=== PATIENT | female | born 1935 | race Caucasian/White ===

== ENCOUNTER → 2018-11-28 | Outpatient (CLI) | payer MEDICARE ==
[~2018-11-28] MED LIST: AMLODIPINE BESY10 MG PO; BENICAR20 MG PO; CARTIA XT120 MG PO; FOSAMAX70 MG PO; HYDROCHLOROTH12.5 MG PO; LEXAPRO20 MG PO; LOSARTAN POTAS100 MG PO; NEXIUM40 MG PO; NORCO 5-325 TA1 EACH PO; PRESERVISION T1 EACH PO; SIMVASTATIN40 MG PO; SOTALOL80 MG PO; SYNTHROID125 MCG PO; VITAMIN B12-FO1 EACH; VITAMIN C1000 MG PO; VITAMIN D1000 UNI1 PO; coQ 10; fish oil; vitamin b12 PO; vitamin e
[2018-11-28 11:12] LABS: BASOPHILS % 0.2 % (0.0-1.0); EOSINOPHILS # (AUTO) 0.1 (0.0-0.4); EOSINOPHILS % 1.6 % (0.0-6.0); HEMATOCRIT 39.5 % (34.2-44.1); HEMOGLOBIN 12.8 g/dL (12.0-16.0); LYMPHOCYTES # (AUTO) 1.3 (1.0-3.2); LYMPHOCYTES % 16.4 % (18.0-39.1); MEAN CORPUSCULAR HEMOGLOBIN 32.2 pg (28-32); MEAN CORPUSCULAR HGB CONC 32.4 g/dL (31-35); MEAN CORPUSCULAR VOLUME 99.2 fL (81-99); MONOCYTES # (AUTO) 0.6 (0.2-0.8); MONOCYTES % 7.6 % (4.4-11.3); NEUTROPHILS % 73.8 % (38.7-80.0); PLATELET COUNT 268 x10e3/uL (140-360); RED BLOOD COUNT 3.98 x10e6/uL (3.6-5.1); RED CELL DISTRIBUTION WIDTH 12.2 % (11.7-14.4)
[2018-11-28 11:14] LABS: BILIRUBIN,URINE NEGATIVE (NEGATIVE); CLARITY,URINE CLEAR (CLEAR); COLOR,URINE YELLOW (YELLOW); KETONES,URINE NEGATIVE (NEGATIVE); LEUKOCYTE ESTERASE ,URINE NEGATIVE (NEGATIVE); NITRITE,URINE NEGATIVE (NEGATIVE); PROTEIN,URINE DIPSTICK NEGATIVE (NEGATIVE); URINE UROBILINOGEN 0.2 mg/dL (0.2 - 1)
[2018-11-28 11:49] LABS: ANION GAP 15.5 mmol/L (8-16); CALCIUM 9.6 mg/dL (8.4-10.2); CHOL/HDL RATIO 2.4 (3.0-3.6); CREATININE, SERUM 1.24 mg/dL (0.57-1.11); POTASSIUM 4.5 mmol/L (3.5-5.1)
[2018-11-28 12:11] LABS: THYROID STIMULATING HORMONE 4.798 uIU/mL (0.350-4.940)
== END ==
LOC: LAB 10:38
PROVIDERS: ATTEND Internal Medicine Cardiovascular Disease
DX: I11.0 Hypertensive heart disease with heart failure (principal); N18.2 Chronic kidney disease, stage 2 (mild); I35.1 Nonrheumatic aortic (valve) insufficiency; E78.5 Hyperlipidemia, unspecified; E03.9 Hypothyroidism, unspecified
CPT/HCPCS: 36415; 80053; 80061; 81003; 82550; 84443; 85025

== ENCOUNTER → 2018-11-30 | Day surgery (SDC) | payer MEDICARE ==
[~2018-11-30] VITALS: Ht 165.1 cm; Wt 61.2 kg
[2018-11-30] VITALS (19 sets, daily range): BP systolic 106–137; BP diastolic 52–105
[~2018-11-30] MED LIST changes: +CEFAZOLIN SOD 1 GM VIAL ONE; +DEXTROSE 5% 250ML 250 ML IV ONE; +FENTANYL CITRATE/PF 100MCG/2 ML INJ ONE; +HEPARIN SOD/SOD CHLORIDE 2,000 ML ONE; +HYDROCODONE/APAP 5MG-325MG TAB ONE; +IOPAMIDOL 300MG/ML 50ML INFUS..BTL IV ONE; +IOPAMIDOL 370 MG/ML 200 ML INFUS..BTL INJ ONE; +LIDOCAINE HCL 1% LOCAL INJ 20 ML VIAL ONE; +MIDAZOLAM HCL 2 MG/2 ML VIAL ONE; +SODIUM CHLORIDE 0.9% 1000ML 1,000 ML ONE; +SODIUM CHLORIDE 0.9% 50ML 50 ML ONE
--- NOTE | 2018-11-30 08:45 | NUR ---
Received patient to radiographer cardiac catheterization holding room 10. Pt gowned and prepped for procedure. Daughter at bedside. Dr. Powell's office informed of patient's arrival and status.
--- NOTE | 2018-11-30 11:48 | NUR ---
1148 Received pt [facility] #[id number]. Report from Kait RODRIGUEZ.[email or web address]. C and Carotid no fix Dr Powell. Back to baseline orientation. PEERLA Family at bedside to talk to family and patient. Respiration shallow and regular 97% on room air. Abdomen soft and non tender denies necessity to defecate or urinate. Bilateral femoral pulses present doppler only. left angioseal dressing site dry and intact w/o s/s hematoma or oozing. Iv infusing left hand w/o s/s infiltration. D51/[address] Powell spoke with family at bedside and diagram and POC discussed.
--- NOTE | 2018-11-30 12:57 | NUR ---
Trendelenburg with 45degree max elevation. Assist with finger food diet tray tolerating well. Son at bedside discussed POC and DC information with family. Papers signed and copies with family. Denies Co or Sob
--- NOTE | 2018-11-30 14:25 | NUR ---
1425 po norco 5/325 for back pain assist back to bed post up to bathroom Left closure site remains dry and intact no hematoma
--- NOTE | 2018-11-30 15:02 | NUR ---
pt states back pain 3/10 left closure device site w/o oozing and no hematoma Family at bedside. Discharge papers done. Fo dc home at 330pm family and pt aware of POC and importance f/o care 1wk at Dr Powell office.
--- NOTE | 2018-11-30 15:30 | NUR ---
DC home per private care no bleeding to left femoral site or hematoma. Aware of POC and has copies of paper. Iv out site w/o s/s infiltration. Coban dressing place to car per w/c
--- NOTE | 2018-12-06 12:54 | Operative Report ---
DATE OF PROCEDURE: November 30, 2018 DIAGNOSES 1. Carotid stenosis with transient ischemic attacks. 2. Coronary artery disease. 3. Valvular heart disease with aortic insufficiency and mitral regurgitation. 4. Hypertensive cardiovascular disease. 5. Sick sinus syndrome with permanent AV sequential pacemaker. INDICATIONS: This 83-year-old patient was recently noted to have left carotid bruit. She also has been complaining of left-sided headache and dizziness. Also I have noticed that the left vertebral artery was not identified during the study of the carotid ultrasound. The patient also has a history of angina pectoris and left ventricular dysfunction due to valvular heart disease. She has been complaining of recent onset of angina pectoris. PROCEDURES 1. Left heart cardiac catheterization including selective coronary angiography and left ventricular angiogram in the 30-degree MORTON projection. 2. Aortic root angiogram. 3. Aortic arch study. 4. Selective left carotid angiogram. 5. Closure of the left femoral artery with Angio-Seal model Evolution. ANESTHESIA: Local anesthetic to the left inguinal area and moderate sedation with 1 mg of Versed and 25 mcg of fentanyl. DESCRIPTION OF PROCEDURE: After usual prepping and draping, the left inguinal area was infiltrated with local lidocaine. The left femoral vein was punctured percutaneously and a guidewire was inserted and left in place. The left femoral artery was then punctured percutaneously under modified Seldinger technique. A 6-Australian arterial sheath was placed. A 6-Australian angled pigtail catheter was then utilized and then aortic arch study in the 30-degree WOLOF projection was performed. This was followed by advancing the pigtail catheter into the left ventricle for recording of hemodynamics and left ventricular angiogram in the 30-degree MORTON projection. The pigtail catheter was then removed and selective coronary angiography was performed using modified Christopher catheter. After removal of the left coronary catheter, the right coronary catheter, which was utilized for the right coronary angiogram, was then positioned in the takeoff of the left internal carotid artery. However since the left internal carotid artery was having a takeoff from the right innominate trunk, it was not possible to advance the catheter over a 0.035 guidewire further up into the left carotid artery. To see if there was an advantage of using a different catheter, a 5-Australian Court Manager H1 and H3 were then introduced and again it was not possible to advance either catheter into the left carotid artery. Unfortunately, Barnhart catheter which usually is very helpful in this situation was not available at the laborer tree tapping and therefore the 5-Australian 3DRC catheter was then re-introduced and selective angiogram of the left carotid artery was performed by hand injection in the AP and lateral position. After reviewing the data and removal of the 5-Australian 3DRC catheter, angiogram of the left groin area in the left anterior oblique position was performed prior to closure of the left femoral artery with Angio-Seal. There was excellent hemostasis and the guidewire from the left femoral vein was then removed. Manual pressure was applied followed by applying dressing over the left inguinal area and transferring the patient to the observation area. The findings of the procedure were discussed in detail with the patient and family and for further detailed discussion and decision making about the findings, it was arranged that the patient will come for an office visit within 1 week after hospital discharge. She should be able to go home, but 4 hours after the completion of the procedure. She will need to be watched because she has restless leg syndrome particularly affecting her left lower extremity. She was recently started on 81 mg aspirin, which she was advised to continue; otherwise, she will continue home medication and low-cholesterol diet. She may resume her activities starting on December 01, 2018. FINDINGS OF THE PROCEDURE: The left ventricular pressure was 145 mmHg. The aortic pressure was 150/44 with mean of 102 mmHg. The left main coronary artery was short. There was 30% stenosis in the proximal left anterior descending branch. The left system was dominant. The right coronary artery was small and non-dominant. There also was evidence of coronary calcification mainly involving the LAD and the left circumflex artery. Also calcifications were noted involving the aortic valve. The left ventricular angiogram showed apical hypokinesis and the global ejection fraction was 45%. The aortic root injection showed 1 to 2+ aortic regurgitation. The left ventricular angiogram showed 1 to 2+ mitral regurgitation. On the aortic root injection, there appeared to be a normal ascending aorta. There was no aneurysm or dissection and there did not appear to be any aneurysmatic dilatation of the aortic cusps. The aortic arch study also showed no aneurysm or dissection. There was mild plaque involving the right innominate artery and there was heavy calcification involving the right carotid bulb; however, there was no evidence of significant stenosis on the aortic arch study. The left carotid artery was originating from the right innominate artery and showed 80% proximal stenosis. There also was heavy calcification noted involving the left carotid bifurcation and carotid bulb. The right vertebral artery appeared to be of normal size and normal takeoff without any stenosis. The left vertebral artery had separate origin between the left carotid artery and the left subclavian artery. There appeared to be 80% stenosis in takeoff, the artery itself was quite small. The left subclavian artery showed no stenosis. The internal mammary arteries were also identified and showed normal takeoff and normal distribution. The left groin injection showed normal external iliac artery and proximal superficial femoral and profunda branch and normal common femoral artery seen on this particular study. A selective carotid angiogram again identified the 80% proximal stenosis in the left internal carotid artery. The middle left cerebral artery appeared to be normal. Also the left common carotid artery and the distal left internal carotid artery appeared to be normal. The left anterior cerebral artery was only identified as small branch and it was possible that the anterior cerebral circulation is mostly supplied by the right carotid artery. However, no selective injection of the right carotid artery appeared to be necessary since the carotid ultrasound did not show any significant stenosis and the aortic arch study also did not identify any significant stenosis in the visualized portions. IMPRESSION 1. Severe stenosis of the proximal left internal carotid artery. 2. 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 3. Mild coronary artery disease. 4. Qagt-uj-rldhdyer mitral and aortic insufficiency. 5. Left ventricular dysfunction with apical hypokinesis and global ejection fraction of 45%. RECOMMENDATIONS 1. Continue medical therapy with inclusion of antiplatelet medication. 2. Obtain a CT study of the brain without contrast particularly since the patient is complaining of left-sided headaches. 3. Repeat carotid Doppler study in 4 months to show any possible progression of the stenosis and the need for intervention with coronary stenting or left carotid endarterectomy. 4. Avoidance of nonsteroidal anti-inflammatory medications because of mild chronic kidney disease. The patient has been taking anti-inflammatory medications for spinal stenosis and chronic low back pain; however, she was discouraged since there is also evidence of left ventricular dysfunction with global low ejection fraction and apical hypokinesis. 5. The patient may benefit from addition of statin despite having lots of normal lipids studies and all of this will be discussed in her followup office weekly visit 1 week after the procedure. Job#: [id number] RTY cc:Dr. Haque
== END | disposition home or self-care (01) ==
LOC: CATH LAB 08:38
PROVIDERS: ATTEND Internal Medicine Cardiovascular Disease
DX: I25.10 Atherosclerotic heart disease of native coronary artery without angina pectoris (principal); I34.1 Nonrheumatic mitral (valve) prolapse; I65.22 Occlusion and stenosis of left carotid artery; I65.02 Occlusion and stenosis of left vertebral artery; I34.0 Nonrheumatic mitral (valve) insufficiency; I35.1 Nonrheumatic aortic (valve) insufficiency; I11.9 Hypertensive heart disease without heart failure; I49.5 Sick sinus syndrome; Z95.0 Presence of cardiac pacemaker; C73 Malignant neoplasm of thyroid gland; M19.90 Unspecified osteoarthritis, unspecified site; G25.81 Restless legs syndrome; Z88.6 Allergy status to analgesic agent; Z88.0 Allergy status to penicillin; Z88.8 Allergy status to other drugs, medicaments and biological substances; Z79.82 Long term (current) use of aspirin
CPT/HCPCS: 36222; 93458; J0690; J2001; J2250; J7030; J7070; Q9967 ×2; 36200